=== PATIENT | female | born 1950 | race Caucasian/White ===

== ENCOUNTER 2016-12-06 07:44 | Emergency (ER) | payer OTHER ==
[2016-12-06 07:57] VITALS: RESP 14; O2SAT 93
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
[2016-12-06] MEDS ORDERED: IBUPROFEN 200 MG TAB PO ONE (08:05)
[2016-12-06 09:03] VITALS: BP 136/84; PULSE 68; TEMP 98.1
== END 2016-12-06 09:02 | disposition home or self-care (01) ==
LOC: EDBD → EDUNIT#
DX: S43.491A Other sprain of right shoulder joint, initial encounter (principal); I10 Essential (primary) hypertension; S20.211A Contusion of right front wall of thorax, initial encounter; V43.52XA Car driver injured in collision with other type car in traffic accident, initial encounter; Y92.410 Unspecified street and highway as the place of occurrence of the external cause; Y99.8 Other external cause status; Y93.89 Activity, other specified

== ENCOUNTER → 2016-12-24 | Outpatient (CLI) | payer OTHER | LOC: BMCIMAGING 14:11 | PROVIDERS: ATTEND Physician Assistant Medical | DX: M54.2 Cervicalgia (principal) ==

== ENCOUNTER → 2017-01-21 | Outpatient (CLI) | payer OTHER | LOC: FIMAGING 07:24 → EDSTATUS 07:33 | PROVIDERS: ATTEND Podiatrist Foot & Ankle Surgery | DX: M79.672 Pain in left foot (principal); M20.12 Hallux valgus (acquired), left foot; M77.32 Calcaneal spur, left foot; R93.6 Abnormal findings on diagnostic imaging of limbs ==

== ENCOUNTER → 2017-09-03 | Outpatient (CLI) | payer OTHER | PROVIDERS: ATTEND Otolaryngology | DX: R13.10 Dysphagia, unspecified (principal); J39.2 Other diseases of pharynx | CPT/HCPCS: 74220; 74230; 92611; G8996; G8997; G8998 ==

== ENCOUNTER → 2017-12-17 | Outpatient (CLI) | payer OTHER | LOC: BMCIMAGING 13:14 | PROVIDERS: ATTEND Physician Assistant | DX: Z47.1 Aftercare following joint replacement surgery (principal); Z96.612 Presence of left artificial shoulder joint; Z96.611 Presence of right artificial shoulder joint ==

== ENCOUNTER → 2018-01-16 | Outpatient (CLI) | payer OTHER ==
[~2018-01-16] MED LIST: IOPAMIDOL (ISOVUE 370) 100 ML BTL IV ONE; LIDOCAINE 1% 300 MG/30 ML SDV ONE
== END ==
LOC: FIMAGING 10:10
PROVIDERS: ATTEND Physician Assistant
DX: Z12.31 Encounter for screening mammogram for malignant neoplasm of breast (principal)
CPT/HCPCS: Q9967

== ENCOUNTER → 2018-01-19 | Outpatient (CLI) | payer OTHER | LOC: FIMAGING 08:23 | PROVIDERS: ATTEND Physician Assistant | DX: M24.812 Other specific joint derangements of left shoulder, not elsewhere classified (principal); M25.511 Pain in right shoulder ==

== ENCOUNTER → 2019-02-12 | Outpatient (CLI) | payer OTHER | LOC: CIMAGING 07:09 | PROVIDERS: ATTEND Physician Assistant Medical | DX: Z12.31 Encounter for screening mammogram for malignant neoplasm of breast (principal) ==